=== PATIENT | female | born 1965 | race Caucasian/White ===

== ENCOUNTER → 2017-03-03 | Outpatient (CLI) | payer OTHER ==
[~2017-03-03] MED LIST: CIPRODEX 0.3%-7.5 ML OT; CLARITIN10 MG PO; DARVOCET N 1001 TAB PO; DAYPRO600 M1 PO; IBUPROFEN PO; KEFLEX500 MG PO; MEDROL DOSEPAK4 MG PO; NEURONTIN100 MG PO; SKELAXIN800 MG PO; ULTRAM50 MG PO; VICODIN 500 MG-1 TAB PO; ZANTAC150 MG PO; ZITHROMAX Z PA250 MG PO
== END | disposition home or self-care (01) ==
LOC: RAD 12:53
DX: M76.891 Other specified enthesopathies of right lower limb, excluding foot (principal); M12.851 Other specific arthropathies, not elsewhere classified, right hip; M54.5 Low back pain

== ENCOUNTER 2017-04-16 17:04 | Emergency (ER) | payer OTHER ==
[~2017-04-16] VITALS: Wt 99.8 kg
[2017-04-16] MEDS ORDERED: CEPHALEXIN500 M1 PO (17:29)
== END 2017-04-16 17:34 | disposition home or self-care (01) ==
LOC: ED 17:04
DX: S40.852A Superficial foreign body of left upper arm, initial encounter (principal); F17.200 Nicotine dependence, unspecified, uncomplicated; Z90.49 Acquired absence of other specified parts of digestive tract; Z88.8 Allergy status to other drugs, medicaments and biological substances; X58.XXXA Exposure to other specified factors, initial encounter; Y93.89 Activity, other specified; Y92.89 Other specified places as the place of occurrence of the external cause; Y99.9 Unspecified external cause status

== ENCOUNTER 2017-09-08 14:38 | Emergency (ER) | payer OTHER ==
[~2017-09-08] VITALS: Wt 100.7 kg
[~2017-09-08 14:38] MED LIST changes: +CEPHALEXIN500 M1 PO
[2017-09-08] MEDS ORDERED: TIZANIDINE HCL4 MG PO (14:46)
[2017-09-08] MEDS ORDERED: AUGMENTIN 875875 MG PO (14:56)
[2017-09-08] MEDS ORDERED: FLONASE ALLERG9.9 ML NS (14:56)
== END 2017-09-08 15:04 | disposition home or self-care (01) ==
LOC: ED 14:38
DX: J32.9 Chronic sinusitis, unspecified (principal); F17.200 Nicotine dependence, unspecified, uncomplicated; F10.10 Alcohol abuse, uncomplicated; Z79.899 Other long term (current) drug therapy

== ENCOUNTER 2019-11-13 14:14 | Emergency (ER) | payer OTHER ==
[~2019-11-13] VITALS: Ht 167.6 cm; Wt 97.5 kg
[~2019-11-13 14:14] MED LIST changes: +AUGMENTIN 875875 MG PO; +FLONASE ALLERG9.9 ML NS; +TIZANIDINE HCL4 MG PO
== END 2019-11-13 17:16 | disposition home or self-care (01) ==
LOC: ED 14:14
DX: R60.0 Localized edema (principal); M25.561 Pain in right knee; M79.89 Other specified soft tissue disorders; K21.9 Gastro-esophageal reflux disease without esophagitis; F17.200 Nicotine dependence, unspecified, uncomplicated; Z79.899 Other long term (current) drug therapy

== ENCOUNTER 2020-10-28 08:20 | Emergency (ER) | payer OTHER ==
[~2020-10-28] VITALS: Wt 103.4 kg
== END 2020-10-28 10:05 | disposition home or self-care (01) ==
LOC: ED 08:20
DX: M79.89 Other specified soft tissue disorders (principal); M25.561 Pain in right knee; K21.9 Gastro-esophageal reflux disease without esophagitis; M19.90 Unspecified osteoarthritis, unspecified site; F17.200 Nicotine dependence, unspecified, uncomplicated; Z79.899 Other long term (current) drug therapy

== ENCOUNTER 2022-09-07 12:13 | Emergency (ER) | payer OTHER ==
[~2022-09-07] VITALS: Wt 106.6 kg
== END 2022-09-07 15:25 | disposition home or self-care (01) ==
LOC: ED 12:13
DX: S93.402A Sprain of unspecified ligament of left ankle, initial encounter (principal); Z88.8 Allergy status to other drugs, medicaments and biological substances; Z90.49 Acquired absence of other specified parts of digestive tract; F10.90 Alcohol use, unspecified, uncomplicated; W19.XXXA Unspecified fall, initial encounter; Y93.89 Activity, other specified; Y92.89 Other specified places as the place of occurrence of the external cause; Y99.8 Other external cause status

== ENCOUNTER 2024-05-23 12:59 | Emergency (ER) | payer MEDICARE, MEDICAID ==
[~2024-05-23] VITALS: Wt 94.8 kg
== END 2024-05-23 14:46 | disposition home or self-care (01) ==
LOC: ED 12:59
DX: S63.501A Unspecified sprain of right wrist, initial encounter (principal); K21.9 Gastro-esophageal reflux disease without esophagitis; M19.90 Unspecified osteoarthritis, unspecified site; Z88.6 Allergy status to analgesic agent; Z90.49 Acquired absence of other specified parts of digestive tract; Z98.890 Other specified postprocedural states; X58.XXXA Exposure to other specified factors, initial encounter; Y93.89 Activity, other specified; Y92.009 Unspecified place in unspecified non-institutional (private) residence as the place of occurrence of the external cause; Y99.8 Other external cause status

== ENCOUNTER 2025-01-03 14:15 | Emergency (ER) | payer MEDICARE ==
[~2025-01-03] VITALS: Ht 165.1 cm; Wt 92.1 kg
[2025-01-03] MEDS ORDERED: Acetaminophen/Oxycodone 5 MG/325 MG TABLET PO ONE (14:30)
== END 2025-01-03 15:39 | disposition home or self-care (01) ==
LOC: ED 14:15
DX: M17.11 Unilateral primary osteoarthritis, right knee (principal); Z88.6 Allergy status to analgesic agent; Z79.899 Other long term (current) drug therapy; Z90.49 Acquired absence of other specified parts of digestive tract

== ENCOUNTER 2025-03-27 16:57 | Emergency (ER) | payer MEDICARE | END 2025-03-27 19:03 | disposition left against medical advice (07) | LOC: ED 16:57 | DX: M25.561 Pain in right knee (principal); Z53.21 Procedure and treatment not carried out due to patient leaving prior to being seen by health care provider ==